=== PATIENT | male | born 1965 | race Caucasian/White ===

== ENCOUNTER 2021-04-05 13:24 | Emergency (ER) | payer OTHER ==
[~2021-04-05] VITALS: Ht 167.6 cm; Wt 80.3 kg
[2021-04-05 13:30] VITALS: BP 145/96
--- NOTE | 2021-04-05 13:35 | NUR ---
Patient ambulated to bed 12 with steady/even gait.
--- NOTE | 2021-04-05 13:40 | NUR ---
56 Y/O M BIB SPOUSE FROM HOME, C/O LOW BACK PAIN POST FALL YESTERDAY. DENIES LOC, SYNCOPE OR HEAD/NECK INJURY. PT STATES 8/10 PAIN TO LOW BACK. DENIES MEDS PRIOR TO ARRIVAL. BED LOCKED IN LOWEST POSITION, SIDE RAILS X 1, CALL LIGHT IN REACH. PMH: DENIES NKA MED: DENIES
[2021-04-05] MEDS ORDERED: KETOROLAC 30 MG/ML VIAL IM ONE (13:45)
--- NOTE | 2021-04-05 13:55 | NUR ---
Patient to RAD by WC.
--- NOTE | 2021-04-05 14:00 | NUR ---
unable to provide meds d/t no iv access.
[2021-04-05] MEDS ORDERED: ACET-8386 PO (15:00)
[2021-04-05 15:20] VITALS: BP 138/92
--- NOTE | 2021-04-05 15:25 | NUR ---
Patient discharged with v/s stable. Written and verbal after care instructions given and explained. Patient alert, oriented and verbalized understanding of instructions. Ambulatory with steady gait. All questions addressed prior to discharge. ID band removed. Patient advised to follow up with PMD. Rx of Hydrocodone/Acetaminophen given. Patient educated on indication of medication including possible reaction and side effects. Opportunity to ask questions provided and answered.
== END 2021-04-05 15:25 | disposition home or self-care (01) ==
LOC: MED 13:24
DX: S22.42XA Multiple fractures of ribs, left side, initial encounter for closed fracture (principal); Z79.899 Other long term (current) drug therapy; W01.0XXA Fall on same level from slipping, tripping and stumbling without subsequent striking against object, initial encounter; Y93.89 Activity, other specified; Y92.89 Other specified places as the place of occurrence of the external cause; Y99.8 Other external cause status
CPT/HCPCS: 71101; 96372; 99283; J1885

== ENCOUNTER 2023-06-04 09:37 | Emergency (ER) | payer OTHER ==
[~2023-06-04] VITALS: Ht 167.6 cm; Wt 80.8 kg
[~2023-06-04 09:37] MED LIST: ACET-8905 PO
[2023-06-04 09:44] VITALS: BP 137/85; PULSE 87; RESP 18; TEMP 98.3; O2SAT 97
== END 2023-06-04 11:15 | disposition left against medical advice (07) ==
LOC: MED 09:37
DX: M79.672 Pain in left foot (principal); M25.511 Pain in right shoulder; Z53.21 Procedure and treatment not carried out due to patient leaving prior to being seen by health care provider
CPT/HCPCS: 99281

== ENCOUNTER 2023-06-06 08:27 | Emergency (ER) | payer OTHER ==
[~2023-06-06] VITALS: Ht 167.6 cm; Wt 81.6 kg
[2023-06-06 08:42] VITALS: BP 151/98; PULSE 74; RESP 18; TEMP 98.1; O2SAT 99
[2023-06-06] MEDS ORDERED: ACET-11169 PO (09:35)
== END 2023-06-06 09:45 | disposition home or self-care (01) ==
LOC: MED 08:27
DX: M79.672 Pain in left foot (principal); M25.511 Pain in right shoulder; Z79.899 Other long term (current) drug therapy
CPT/HCPCS: 73030; 73630; 99284